=== PATIENT | male | born 1995 | race Caucasian/White ===

== ENCOUNTER 2019-12-06 14:55 | Emergency (ER) | payer OTHER ==
[~2019-12-06] VITALS: Ht 162.6 cm; Wt 76.8 kg
[2019-12-06 15:20] VITALS: BP 140/84
== END 2019-12-06 15:51 | disposition home or self-care (01) ==
LOC: ER 14:55
DX: T24.512A Corrosion of first degree of left thigh, initial encounter (principal); T32.0 Corrosions involving less than 10% of body surface; Y93.89 Activity, other specified; Y92.89 Other specified places as the place of occurrence of the external cause; Y99.8 Other external cause status
CPT/HCPCS: 99281